=== PATIENT | female | born 1985 | race African-American/Black ===

== ENCOUNTER 2024-10-09 18:50 | Emergency (ER) | payer OTHER ==
[~2024-10-09] VITALS: Ht 162.6 cm; Wt 117.3 kg
[2024-10-09 19:17] VITALS: TEMP 98.1
[2024-10-09] MEDS: IBUPROFEN 400 MG TABLET PO ONE (20:43)
[2024-10-09] MEDS: ACETAMINOPHEN 500 MG TABLET PO ONE (20:44)
[2024-10-09] MEDS: METHOCARBAMOL 500 MG TABLET PO ONE (20:45)
[2024-10-09] MEDS: LIDOCAINE 5% TRANSDERMAL PATCH TD ONE (20:45)
[2024-10-09 21:00] VITALS: BP 147/88; PULSE 88; RESP 18; O2SAT 100
[2024-10-09] MEDS: DIAZEPAM 5 MG TABLET PO ONE (22:08)
[2024-10-09] MEDS: DEXAMETHASONE 4 MG TABLET PO ONE (22:08)
[2024-10-09] MEDS ORDERED: DIAZ-328 PO (22:45)
== END 2024-10-09 22:59 | disposition home or self-care (01) ==
LOC: EMS 18:59
DX: S29.012A Strain of muscle and tendon of back wall of thorax, initial encounter (principal); M62.830 Muscle spasm of back; Z88.0 Allergy status to penicillin; Z90.49 Acquired absence of other specified parts of digestive tract; Z85.41 Personal history of malignant neoplasm of cervix uteri; X58.XXXA Exposure to other specified factors, initial encounter; Y93.89 Activity, other specified; Y92.89 Other specified places as the place of occurrence of the external cause; Y99.8 Other external cause status
CPT/HCPCS: 99284; J8540; Z7502; Z7610

== ENCOUNTER 2025-05-28 14:48 | Emergency (ER) | payer OTHER ==
[~2025-05-28] VITALS: Ht 162.6 cm; Wt 109.1 kg
[~2025-05-28 14:48] MED LIST: DIAZ-328 PO
[2025-05-28 17:07] LABS: PLATELET COUNT (AUTO) 387 K/uL (150-450); RED BLOOD CELL COUNT(AUTO) 3.95 MIL/uL (4.00-5.20); RED CELL DISTRIBUTION WIDTH 15.4 % (11.5-14.5); WHITE BLOOD COUNT (AUTO) 11.6 K/uL (4.5-11.0)
[2025-05-28 17:13] LABS: APPEARANCE,URINE TURBID (CLEAR); GLUCOSE, URINE (UA) NEGATIVE (NEGATIVE); LEUKOCYTE ESTERASE ,URINE MODERATE (NEGATIVE); NITRATE,URINE NEGATIVE (NEGATIVE); OCCULT BLOOD,URINE LARGE (NEGATIVE); SPECIFIC GRAVITIY, URINE 1.035 (1.003-1.030)
[2025-05-28 17:16] LABS: CALCIUM, TOTAL 8.5 mg/dL (8.8-10.5); CREATININE 0.57 mg/dL (0.60-1.30); GLOMERULAR FILTR. RATE CALC > 60 mL/min (>60); GLUCOSE,RANDOM 105 mg/dL (70-110); SODIUM SERUM 138 mmol/L (136-145); UREA NITROGEN, BLOOD 6 mg/dL (7-18)
[2025-05-28 17:22] LABS: ASPARTATE AMINOTRANSFERASE 13.0 U/L (15-37); TOTAL PROTEIN, SERUM 7.3 g/dL (6.4-8.2)
[2025-05-28 17:27] LABS: SQUAMOUS EPITHELIAL CELL,UR Moderate /LPF (None Seen)
[2025-05-28] MEDS ORDERED: FOSF3PAC4 PO (17:52)
[2025-05-28 18:41] LABS: SULFOSALICYLIC ACID,URINE 1+ (Negative)
[2025-05-28 19:30] VITALS: BP 133/71; PULSE 75; RESP 16; TEMP 97.3; O2SAT 99
== END 2025-05-29 03:51 | disposition home or self-care (01) ==
LOC: EMS 14:48
DX: O20.9 Hemorrhage in early pregnancy, unspecified (principal); N89.8 Other specified noninflammatory disorders of vagina; Z85.41 Personal history of malignant neoplasm of cervix uteri; Z88.0 Allergy status to penicillin; Z90.49 Acquired absence of other specified parts of digestive tract; Z3A.01 Less than 8 weeks gestation of pregnancy
CPT/HCPCS: 76801; 80048; 80076; 81001; 81002; 84702; 85025; 86901; 87086; 99284